=== PATIENT | female | born 1990 | race Caucasian/White ===

== ENCOUNTER 2019-08-28 17:18 | Emergency (ER) | payer OTHER ==
[2019-08-28 17:50] VITALS: BP 139/74
--- NOTE | 2019-08-28 18:22 | UC ---
Nausea/Vomiting/Diarrhea HPI - HPI Summary HPI Summary: 29-year-old female comes in with a chief complaint of diarrhea. Patient's had loose diarrhea stools for several months. Usually it would only be 1 loose or diarrhea stool a day. In the last 2 weeks he frequency of the diarrhea has increased. Over the last several days she's been having some which diarrhea she can't count the number of times she's going. In the last couple of days the need to have a bowel movement wakes her from sleep and occasionally she soiled herself with not being able to control the diarrhea. She has lower abdominal cramping when she has the diarrhea. No complaint of persistent abdominal pain. No right lower quadrant pain. She has been having some night sweats. She works on a farm. Has not seen any blood in the stool. No fevers measured - History of Current Complaint Chief Complaint: UCGI Stated Complaint: DIARRHEA,NAUSEA,VOMITTING,ABD PAIN Time Seen by Provider: 08/28/19 18:07 Hx Last Menstrual Period: 08/13/19 Pain Intensity: 0 - Allergies/Home Medications Allergies/Adverse Reactions: Allergies Allergy/AdvReac Type Severity Reaction Status Date / Time No Known Allergies Allergy Verified 08/28/19 17:40 Home Medications: Home Medications Methocarbamol TAB* [Robaxin 500 MG TAB*] 1 tab BID PRN 08/28/19 [History Confirmed 08/28/19] Mirtazapine TAB* [Remeron TAB*] 1 tab QPM 08/28/19 [History Confirmed 08/28/19] hydrOXYzine HCL TAB* [Atarax 25 MG TAB*] 1 tab DAILY PRN 08/28/19 [History Confirmed 08/28/19] PMH/Surg Hx/FS Hx/Imm Hx Previously Healthy: Yes - Surgical History Surgical History: None - Family History Known Family History: Positive: Non-Contributory - Social History Alcohol Use: None Substance Use Type: Marijuana Substance Use Comment - Amount & Last Used: DALIY Smoking Status (MU): Heavy Every Day Tobacco Smoker Type: Cigarettes Amount Used/How Often: 1 PPD Review of Systems All Other Systems Reviewed And Are Negative: Yes Constitutional: Positive: Other - SEE HPI Skin: Positive: Negative Eyes: Positive: Negative ENT: Positive: Negative Respiratory: Positive: Negative Cardiovascular: Positive: Negative Gastrointestinal: Positive: Abdominal Pain, Diarrhea, Other - SEE HPI Genitourinary: Positive: Negative Motor: Positive: Negative Neurovascular: Positive: Negative Musculoskeletal: Positive: Negative Neurological: Positive: Negative Psychological: Positive: Negative Is Patient Immunocompromised?: No Physical Exam Triage Information Reviewed: Yes Appearance: Well-Appearing, No Pain Distress, Well-Nourished Vital Signs: Initial Vital Signs Temp 98.3 F 08/28/19 17:41 Pulse 88 08/28/19 17:41 Resp 16 08/28/19 17:41 BP 139/74 08/28/19 17:41 Pulse Ox 100 08/28/19 17:41 Vital Signs Reviewed: Yes Eye Exam: Normal Eyes: Positive: Conjunctiva Clear Neck: Positive: Supple Respiratory: Positive: Lungs clear, Normal breath sounds, No respiratory distress Cardiovascular: Positive: RRR Abdomen Description: Positive: Other: - Mild tenderness to palpation left lower quadrant suprapubic area. No tenderness to palpation right lower quadrant. No rebound. Positive bowel sounds. Bowel Sounds: Positive: Present Musculoskeletal: Positive: Strength Intact, ROM Intact Neurological: Positive: Alert, Muscle Tone Normal Psychological: Positive: Age Appropriate Behavior Skin Exam: Normal Naus/Vom/Diarrhea Course/Dx - Differential Dx/Diagnosis Provider Diagnosis: Diarrhea, Abdominal pain Condition At Discharge: Stable Discharge ED - Sign-Out/Discharge Documenting (check all that apply): Patient Departure All imaging exams completed and their final reports reviewed: No Studies - Discharge Plan Condition: Stable Disposition: HOME Patient Education Materials: Acute Diarrhea (ED), Abdominal Pain (ED) Referrals: Melissa Feliciano [Primary Care Provider] - Noman Martinez DO [Doctor of Osteopathy] - Additional Instructions: FOLLOW UP WITH YOUR PRIMARY CARE DOCTOR AND GASTROENTEROLOGY. GET REEVALUATED SOONER IF NOT IMPROVING OR GO TO THE EMERGENCY DEPARTMENT IF WORSE; FEVER, PAIN THAT PERSISTS, BLOOD IN YOUR STOOL, YOU FEEL ILL, FEVERS OR ANY QUESTIONS OR CONCERNS. - Billing Disposition and Condition Condition: STABLE Disposition: Home
== END 2019-08-28 18:48 | disposition home or self-care (01) ==
LOC: UCCORT 17:18
DX: R10.32 Left lower quadrant pain (principal); R19.7 Diarrhea, unspecified; R11.2 Nausea with vomiting, unspecified; R61 Generalized hyperhidrosis; F17.210 Nicotine dependence, cigarettes, uncomplicated
CPT/HCPCS: 81003; 84702; 99211; G0463

== ENCOUNTER 2019-11-28 18:37 | Emergency (ER) | payer OTHER ==
[2019-11-28 20:05] VITALS: BP 113/71
[2019-11-28] MEDS ORDERED: Amoxicillin PO (*) 500 MG CAP PO ONE (20:39)
--- NOTE | 2019-11-28 20:40 | UC ---
Throat Pain/Nasal [place] HPI - HPI Summary HPI Summary: 29-year-old woman comes in with a chief complaint of upper respiratory tract infection symptoms. Her history is somewhat vague and duration of symptoms may be for days or even a month. She does have bilateral Ear pain. She also has yellow rhinorrhea. Patient reports she's decrease smoking she does have some yellow sputum. - History of Current Complaint Chief Complaint: UCGeneralIllness Stated Complaint: PERSONAL Time Seen by Provider: 11/28/19 20:28 Hx Last Menstrual Period: 11/13/19 Pain Intensity: 3 - Allergies/Home Medications Allergies/Adverse Reactions: Allergies Allergy/AdvReac Type Severity Reaction Status Date / Time No Known Allergies Allergy Verified 11/28/19 20:05 Home Medications: Home Medications hydrOXYzine HCL TAB* [Atarax 25 MG TAB*] 1 tab DAILY PRN 08/28/19 [History Confirmed 11/28/19] Amoxicillin PO (*) [Amoxicillin 875 MG (*)] 875 mg PO BID #20 tab 11/28/19 [Rx] PMH/Surg Hx/FS Hx/Imm Hx Previously Healthy: Yes - Surgical History Surgical History: None - Family History Known Family History: Positive: Non-Contributory - Social History Alcohol Use: None Substance Use Type: Marijuana Substance Use Comment - Amount & Last Used: DALIY Smoking Status (MU): Former Smoker Type: Cigarettes Amount Used/How Often: 1 PPD Review of Systems All Other Systems Reviewed And Are Negative: Yes Constitutional: Positive: Other - SEE HPI Skin: Positive: Negative Eyes: Positive: Negative ENT: Positive: Sore Throat, Ear Ache, Nasal Discharge, Sinus Congestion Respiratory: Positive: Cough Cardiovascular: Positive: Negative Gastrointestinal: Positive: Negative Motor: Positive: Negative Neurovascular: Positive: Negative Musculoskeletal: Positive: Negative Neurological/Mental Status: Positive: Negative Psychological: Positive: Negative Is Patient Immunocompromised?: No Physical Exam Triage Information Reviewed: Yes Appearance: Well-Appearing, No Pain Distress, Well-Nourished Vital Signs: Initial Vital Signs Temp 100.0 F 11/28/19 19:57 Pulse 85 11/28/19 19:57 Resp 16 11/28/19 19:57 BP 113/71 11/28/19 19:57 Pulse Ox 98 11/28/19 19:57 Vital Signs Reviewed: Yes Eye Exam: Normal Eyes: Positive: Conjunctiva Clear ENT: Positive: Pharyngeal erythema, Nasal congestion, Nasal drainage, TMs normal Neck: Positive: Supple Respiratory: Positive: Lungs clear, Normal breath sounds, No respiratory distress Cardiovascular: Positive: RRR Musculoskeletal: Positive: Strength Intact, ROM Intact Neurological: Positive: Alert, Muscle Tone Normal Psychological: Positive: Age Appropriate Behavior Skin Exam: Normal Throat Pain/Nasal Course/Dx - Course Course Of Treatment: DISCUSSED VIRAL VERSES BACTERIAL INFECTIONS AND THE ROLE OF ANTIBIOTICS. THE PATIENT PREFERS TO BE ON ANTIBIOTICS AT THIS TIME. - Differential Dx/Diagnosis Provider Diagnosis: Upper respiratory infection, Ear pain Discharge ED - Sign-Out/Discharge Documenting (check all that apply): Patient Departure All imaging exams completed and their final reports reviewed: No Studies - Discharge Plan Condition: Stable Disposition: HOME Prescriptions: Amoxicillin PO (*) [Amoxicillin 875 MG (*)] 875 mg PO BID #20 tab Patient Education Materials: Upper Respiratory Infection (ED), Earache (ED) Referrals: Laina Covington MD [Primary Care Provider] - Additional Instructions: FOLLOW UP WITH YOUR DOCTOR IF NOT COMPLETELY IMPROVED. GET REEVALUATED SOONER IF NOT IMPROVED OR WORSE OR ANY QUESTIONS OR CONCERNS. - Billing Disposition and Condition Condition: STABLE Disposition: Home
== END 2019-11-28 20:48 | disposition home or self-care (01) ==
LOC: UCCORT 18:37
DX: J06.9 Acute upper respiratory infection, unspecified (principal); H92.03 Otalgia, bilateral; Z87.891 Personal history of nicotine dependence
CPT/HCPCS: 99212; A9270-GY; G0463

== ENCOUNTER 2020-01-15 18:23 | Emergency (ER) | payer OTHER ==
[2020-01-15 18:40] VITALS: BP 148/82
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
== END 2020-01-15 19:32 | disposition home or self-care (01) ==
LOC: UCCORT 18:23
DX: M54.2 Cervicalgia (principal); S00.83XA Contusion of other part of head, initial encounter; W22.8XXA Striking against or struck by other objects, initial encounter; Y93.89 Activity, other specified; Y92.9 Unspecified place or not applicable; F17.210 Nicotine dependence, cigarettes, uncomplicated
CPT/HCPCS: 84702; 99212; G0463